=== PATIENT | female | born 1945 | race Caucasian/White ===

== ENCOUNTER 2022-05-26 09:31 | Outpatient (CLI) | payer MEDICARE, OTHER ==
[2022-05-26 17:05] LABS: BILIRUBIN,URINE NEGATIVE (NEGATIVE); GLUCOSE, URINE (UA) NEGATIVE (NEGATIVE); KETONES,URINE (UA) NEGATIVE (NEGATIVE); LEUKOCYTE ESTERASE, URINE NEGATIVE (NEGATIVE); NITRITE,URINE NEGATIVE (NEGATIVE); OCCULT BLOOD,URINE NEGATIVE (NEGATIVE); PH,URINE 5.5 PH (5.0-7.5); PROTEIN,URINE NEGATIVE (NEGATIVE); UROBILINOGEN,URINE 0.2 (NORMAL) E.U./dL (NORMAL)
[2022-05-26 17:06] LABS: CLARITY,URINE CLEAR (CLEAR)
[2022-05-26 17:21] LABS: BACTERIA,URINE Few /HPF (None Seen); MUCUS,URINE Few Strands; RBC,URINE 0-5 /HPF (0-5); SQUAMOUS EPITHELIAL CELL,UR FEW Squamous (<= Few); WBC,URINE 0-3 /HPF (0-5)
== END 2022-05-26 09:32 | disposition home or self-care (01) ==
LOC: LAB 09:31
PROVIDERS: ATTEND Student in an Organized Health Care Education/Training Program
DX: N32.81 Overactive bladder (principal)
CPT/HCPCS: 81001; 87086

== ENCOUNTER 2022-08-25 23:00 | Outpatient (CLI) | payer MEDICARE, OTHER | END 2022-08-25 23:01 | disposition critical access hospital (66) | LOC: EMS 23:00 | DX: S01.111A Laceration without foreign body of right eyelid and periocular area, initial encounter (principal); W00.0XXA Fall on same level due to ice and snow, initial encounter; Y93.01 Activity, walking, marching and hiking; Y92.009 Unspecified place in unspecified non-institutional (private) residence as the place of occurrence of the external cause | CPT/HCPCS: A0425; A0429 ==

== ENCOUNTER 2022-08-26 00:05 | Emergency (ER) | payer MEDICARE, OTHER ==
[2022-08-26] MEDS ORDERED: LIDOCAINE 1%-EPI 1:100000 20 ML MDV SUBQ STA (00:11)
--- NOTE | 2022-08-26 00:11 | ED Physician Documentation ---
PD HPI Fall - Stated complaint Stated Complaint: GLF/LACERATION - History obtained from History obtained from: Patient - History of Present Illness Mechanism of injury: Tripped Fall distance: Standing position Where injury occurred: Home Timing - onset: Enter time Injury(ies) location: Face Pain level max: 0 Pain level now: 0 Associated symptoms: No: LOC, Amnesia, Neck pain, Weakness, Paresthesias Contributing factors: No: Anticoagulated, Intoxicated Recently seen: Not recently seen - Additional information Additional information: RAJINDER. HPI from patient. At approximately 11 PM tonight, patient was at home when she tripped over her dog, causing patient to fall to the floor. Patient struck her face on the wood floor, sustaining right supraorbial laceration. The laceration is her only concern. She denies LOC, denies DALE (has mild pain localized to area of injury). Denies neck pain. She does not take anticoagulants. Tetanus is UTD Review of Systems Eyes: denies: Loss of vision, Decreased vision Skin: reports: Laceration (s) Musculoskeletal: reports: Reviewed and negative Neurologic: reports: Head injury. denies: Generalized weakness, Focal weakness, Numbness, Confused, Altered mental status, Headache, LOC PD PAST MEDICAL HISTORY - Past Medical History Past Medical History: No - Present Medications Home Medications: Ambulatory Orders Medication Instructions Recorded Confirmed No Known Home Medications 08/26/22 08/26/22 - Allergies Allergies/Adverse Reactions: Allergies Allergy/AdvReac Type Severity Reaction Status Date / Time No Known Drug Allergies Allergy Verified 08/26/22 00:25 - Living Situation Living Situation: reports: Alone Living Arrangement: reports: At home PD ED PE NORMAL - Vitals Vital signs reviewed: Yes - General General: Alert and oriented X 3, No acute distress - HEENT HEENT: PERRL, EOMI - Neck Neck: No bony TTP PD ED PE EXPANDED - HEENT HEENT Visual: 1 - laceration (4 cm length. mild surrounding TTP without bony deformity, crepitus) Results - Vitals Vitals: Vital Signs - 24 hr 08/26/22 08/26/22 00:05 02:00 Temperature 35.9 C L 36.9 C Heart Rate 75 70 Respiratory 14 16 Rate Blood Pressure 102/90 H 151/77 H O2 Saturation 97 100 Oxygen O2 Source Room air Procedures - Laceration (location) Face right Length in cm: 4 Wound type: Linear, Into subcut fat, Clean Neurovascular status: Sensory intact, Motor intact, Vascular intact Anesthesia: Lidocaine 1% with epi Wound preparation: Chlorhexadine, Irrigated copiously NS, Wound explored Skin layer closure: Nylon, Interrupted, Running, Size #-0 - enter number (5-0), Other (lateral aspect of laceration reapproximated with running suture, 7 throws. Medial aspect reapproximated with running suture, three throws. A solitatary single interrupted suture was also placed to close small gap between the running sutures.) Other: Patient tolerated well, No complications, Neurovascular intact, Tetanus UTD PD Medical Decision Making - ED course Complexity details: considered differential, d/w patient ED course: Presents with right eyebrow laceration due to fall at home. Laceration repaired as per procedure note. She has no other c/o nor exam findings to indicate wesley gent testing. Return precautions discussed as were wound care and follow-up instructions Departure - Departure Disposition: 01 Home, Self Care Clinical Impression: Laceration, Fall Condition: Good Instructions: ED Laceration Facial Sutr Tape Comments: Follow-up with your primary care provider in 10 days for removal of the sutures. A total of 11 sutures were placed. A running stitch with 7 throws in the lateral aspect, and a single simple interrupted suture, and 3 throws of a running stitch in the medial aspect. I have included this information in your discharge instructions for the benefit of the provider that removes the stitches. Please bring these discharge instructions with you and show them to whoever is going to remove the stitches. Discharge Date/Time: 08/26/22 02:15
[2022-08-26] MEDS ORDERED: BACITRACIN ZINC OINT 1 PACKET TOP ONE (01:33)
[2022-08-26] MEDS ORDERED: BACITRACIN ZINC OINT 1 PACKET TOP STA (01:35)
[2022-08-26 02:18] VITALS: BP 151/77
== END 2022-08-26 02:15 | disposition home or self-care (01) ==
LOC: EDUNIT# → ED 00:05
DX: S01.111A Laceration without foreign body of right eyelid and periocular area, initial encounter (principal); W18.31XA Fall on same level due to stepping on an object, initial encounter; Y92.009 Unspecified place in unspecified non-institutional (private) residence as the place of occurrence of the external cause
CPT/HCPCS: 12013; 99283; A9270

== ENCOUNTER 2022-12-23 15:39 | Outpatient (CLI) | payer MEDICARE, OTHER ==
[2022-12-23 15:51] LABS: BASOPHILS # (AUTO) 0.1 10^3/uL (0.0-0.1); BASOPHILS % (AUTO) 1.1 %; EOSINOPHILS # (AUTO) 0.2 10^3/uL (0.0-0.7); EOSINOPHILS % (AUTO) 3.6 %; HCT - HEMATOCRIT 44.3 % (37.0-47.0); LYMPHOCYTES # (AUTO) 2.1 10^3/uL (1.5-3.5); LYMPHOCYTES % (AUTO) 31.6 %; MEAN CORPUSCULAR HEMOGLOBIN 28.9 pg (27.0-31.0); MEAN CORPUSCULAR HGB CONC 31.6 g/dL (32.0-36.0); MEAN CORPUSCULAR VOLUME 91.3 fL (81.0-99.0); MEAN PLATELET VOLUME 10.4 fL (7.9-10.8); MONOCYTES # (AUTO) 0.5 10^3/uL (0.0-1.0); MONOCYTES % (AUTO) 8.1 %; NEUTROPHILS # (AUTO) 3.7 10^3/uL (1.5-6.6); NEUTROPHILS % (AUTO) 55.3 %; PLT - PLATELET COUNT 246 10^3/uL (130-450); RED BLOOD COUNT 4.85 10^6/uL (4.20-5.40); RED CELL DISTRIBUTION WIDTH 12.9 % (12.0-15.0); WHITE BLOOD COUNT 6.6 x10^3/uL (4.8-10.8)
[2022-12-23 16:05] LABS: ALBUMIN 4.1 g/dL (3.2-5.5); ALBUMIN/GLOBULIN RATIO 1.4 (1.0-2.2); ALKALINE PHOSPHATASE 70 IU/L (42-121); ALT ALANINE AMINOTRANSFERASE 26 IU/L (10-60); AST ASPARTATE AMINOTRANSFERASE 21 IU/L (10-42); BILIRUBIN,TOTAL 0.6 mg/dL (0.2-1.0); BUN - BLOOD UREA NITROGEN 33 mg/dL (6-20); CALCIUM 9.5 mg/dL (8.5-10.3); CARBON DIOXIDE - CO2 29 mmol/L (21-32); CHLORIDE 102 mmol/L (101-111); CREATININE 0.7 mg/dL (0.4-1.0); GFR - MDRD 81 (>89); GLUCOSE 93 mg/dL (70-100); POTASSIUM 4.1 mmol/L (3.5-5.0); SODIUM 139 mmol/L (135-145)
[2022-12-23 16:08] LABS: CRP - C-REACTIVE PROTEIN < 1.0 mg/dL (0-1.0)
== END 2022-12-23 15:40 | disposition home or self-care (01) ==
LOC: LAB 15:39
PROVIDERS: ATTEND Internal Medicine
DX: Z79.899 Other long term (current) drug therapy (principal)
CPT/HCPCS: 36415; 80053; 85025; 85651; 86140